=== PATIENT | male | born 1965 | race Caucasian/White ===

== ENCOUNTER 2017-12-14 19:16 | Emergency (ER) | payer OTHER ==
[~2017-12-14] VITALS: Ht 193 cm; Wt 99.8 kg
[~2017-12-14 19:16] MED LIST: FLEXERIL10 MG PO; INTESTINEX1 CA1 PO; MOTRIN800 MG PO; ORPH100T PO; PREDNISONE5 MG/DOSE- PO
== END 2017-12-14 20:49 | disposition home or self-care (01) ==
LOC: ER 19:16
DX: M54.5 Low back pain (principal)

== ENCOUNTER 2018-03-17 16:36 | Emergency (ER) | payer OTHER ==
[~2018-03-17] VITALS: Ht 193 cm; Wt 99.8 kg
[2018-03-17] MEDS ORDERED: KETO10TA2 PO (20:20)
[2018-03-17] MEDS ORDERED: INTESTINEX680 M1 PO (20:20)
[2018-03-17] MEDS ORDERED: CLINDAMYCIN HC150 MG PO (20:20)
[2018-03-18] MEDS ORDERED: NON-ASPIRIN PA500 MG (00:36)
== END 2018-03-17 20:38 | disposition home or self-care (01) ==
LOC: ER 16:36
DX: L02.811 Cutaneous abscess of head [any part, except face] (principal)

== ENCOUNTER 2018-06-21 20:03 | Emergency (ER) | payer OTHER ==
[~2018-06-21] VITALS: Ht 193 cm; Wt 96.6 kg
[~2018-06-21 20:03] MED LIST changes: +CLINDAMYCIN HC150 MG PO; +INTESTINEX680 M1 PO; +KETO10TA2 PO; +NON-ASPIRIN PA500 MG
[2018-06-21] MEDS ORDERED: ZEPATIER 50-101 EACH (20:22)
== END 2018-06-21 22:24 | disposition home or self-care (01) ==
LOC: ER 20:03
DX: M54.5 Low back pain (principal)